=== PATIENT | female | born 1980 | race Caucasian/White ===

== ENCOUNTER 2018-10-05 19:48 | Emergency (ER) | payer MEDICAID ==
[~2018-10-05] VITALS: Ht 167.6 cm; Wt 86.0 kg
[2018-10-05] MEDS ORDERED: ACETAMINOPHEN 325MG TABLET PO STA (21:08)
[2018-10-05] MEDS ORDERED: KETOROLAC 30MG/ML VIAL IV STA (21:08)
[2018-10-05 21:56] LABS: BASOPHILS % 0.8 % (0.0-2.0); EOSINOPHILS % 2.2 % (0.0-5.0); HEMATOCRIT. 30.8 % (36.0-48.0); HEMOGLOBIN. 9.4 g/dL (12.0-16.0); LYMPHOCYTES % 23.4 % (20.0-50.0); MEAN CORPUSCULAR VOLUME 71.8 fL (81.0-99.0); MEAN PLATELET VOLUME 8.9 fl (7.4-10.4); MONOCYTES % 7.9 % (2.0-8.0); NEUTROPHILS % 65.7 % (40.0-76.0); PLATELET 358 x1000/uL (130-400); RED BLOOD CELL COUNT 4.29 mill/uL (4.2-5.4); RED CELL DISTRIBUTION WIDTH 16.7 % (11.6-14.6)
[2018-10-05 21:59] LABS: CHLORIDE 109 mEq/L (98-107)
[2018-10-05 22:00] LABS: PROTHROMBIN TIME 10.5 sec (9.1-11.1)
[2018-10-06 00:08] VITALS: BP 101/70
== END 2018-10-06 01:30 | disposition home or self-care (01) ==
LOC: ER 19:48
DX: M79.602 Pain in left arm (principal); I10 Essential (primary) hypertension; E11.9 Type 2 diabetes mellitus without complications; I25.2 Old myocardial infarction; Z98.890 Other specified postprocedural states; Z88.8 Allergy status to other drugs, medicaments and biological substances
CPT/HCPCS: 36415; 71045; 80053; 81025; 84484; 85025; 85610; 93005; 93971; 96374; 99284; J1885